=== PATIENT | male | born 1950 | race Caucasian/White ===

== ENCOUNTER 2019-06-16 07:31 | Day surgery (SDC) | payer MEDICARE, OTHER ==
[2019-06-16] VITALS (17 sets, daily range): BP systolic 118–160; BP diastolic 59–85
[~2019-06-16] VITALS: Ht 193 cm; Wt 144.7 kg
[2019-06-16] MEDS ORDERED: normal saline 1000ml 1,000 ML IV SCH ×2 (07:55→09:06)
[2019-06-16] MEDS ORDERED: ENZA40CA PO (08:40)
[2019-06-16] MEDS ORDERED: SYN0.112T PO (08:40)
[2019-06-16] MEDS ORDERED: PARO10TA85 PO (08:40)
[2019-06-16] MEDS ORDERED: HYDR12.5 PO (08:40)
[2019-06-16] MEDS ORDERED: DENO120V (08:40)
[2019-06-16] MEDS ORDERED: CALC-1051 PO (08:40)
[2019-06-16] MEDS ORDERED: MULT-1141 PO (08:40)
[2019-06-16] MEDS ORDERED: HYDR-3973 PO (08:40)
[2019-06-16] MEDS ORDERED: MELO-102 PO (08:40)
[2019-06-16] MEDS ORDERED: OXYC10TA47 PO (08:40)
[2019-06-16] MEDS ORDERED: ENAL20TA PO (08:40)
[2019-06-16] MEDS ORDERED: FAMO20TA8 PO (08:40)
[2019-06-16 09:10] LABS: BASOPHILS % (AUTO) 0.7 % (0-1); EOSINOPHILS # (AUTO) 0.1 X10'3 (0-0.9); EOSINOPHILS % (AUTO) 3.1 % (0-6); HEMATOCRIT 36.7 % (42.0-52.0); HEMOGLOBIN 13.1 g/dl (14.0-17.9); LYMPHOCYTES # (AUTO) 0.5 X10'3 (1.1-4.8); LYMPHOCYTES % (AUTO) 11.9 % (21-51); MEAN CORPUSCULAR HEMOGLOBIN 33.9 PG (27.0-31.0); MEAN CORPUSCULAR HGB CONC 35.7 g/dL (33.0-36.5); MEAN PLATELET VOLUME 6.8 FL (7.4-10.4); MONOCYTES # (AUTO) 0.3 X10'3 (0-0.9); MONOCYTES % (AUTO) 8.1 % (2-12); NEUTROPHILS # (AUTO) 3.1 X10'3 (1.8-7.7); NEUTROPHILS % (AUTO) 76.2 % (42-75); PLATELET COUNT 155 X10'3 (140-440); RED BLOOD COUNT 3.86 X10'6 (4.70-6.10); RED CELL DISTRIBUTION WIDTH 14.2 % (11.5-14.5)
[2019-06-16 09:25] LABS: ALBUMIN 3.5 G/DL (3.4-5.0); ANION GAP 6 (8-16); BLOOD UREA NITROGEN 16 MG/DL (7-18); BUN/CREATININE RATIO 15.4 (5.4-32.0); CALCIUM 8.2 MG/DL (8.5-10.1); CHLORIDE 106 MMOL/L (99-107); CREATININE 1.04 MG/DL (0.60-1.10); GLUCOSE 99 MG/DL (70-104); POTASSIUM 4.1 MMOL/L (3.5-5.1); SODIUM 142 MMOL/L (135-145); TOTAL CARBON DIOXIDE 29.9 MMOL/L (24-32); eGFR 71 ML/MIN
[2019-06-16] MEDS ORDERED: fentaNYL/PF 50MCG/1 ML 2ML syringe IV PRN (09:25)
[2019-06-16] MEDS ORDERED: LIDOcaine 1% (10mg/ml) 2ml vial SQ ONE (09:25)
[2019-06-16] MEDS ORDERED: midazolam 2 mg/2 ml injection ONE ×2 (09:25→10:54)
[2019-06-16] MEDS ORDERED: midazolam 2 mg/2 ml injection IV PRN (09:25)
[2019-06-16] MEDS ORDERED: fentaNYL/PF 50MCG/1 ML 2ML syringe ONE ×2 (09:26→10:54)
[2019-06-16] MEDS ORDERED: iohexol 300mg/ml 100ml inj. ONE (10:02)
[2019-06-16] MEDS ORDERED: LIDOcaine 1%/PF 5ML 10 MG/ML VIAL ONE (10:54)
[2019-06-16] MEDS ORDERED: heparin sodium, porcine/PF 100unit/ml 5ML syringe ONE (10:54)
== END 2019-06-16 13:30 | disposition home or self-care (01) ==
LOC: SSTAY O 07:31
PROVIDERS: ATTEND Radiology Diagnostic Radiology
DX: C61 Malignant neoplasm of prostate (principal); K76.9 Liver disease, unspecified; K21.9 Gastro-esophageal reflux disease without esophagitis; I10 Essential (primary) hypertension; E03.9 Hypothyroidism, unspecified; E66.9 Obesity, unspecified; Z68.38 Body mass index [BMI] 38.0-38.9, adult; Z96.653 Presence of artificial knee joint, bilateral; Z98.890 Other specified postprocedural states; Z98.41 Cataract extraction status, right eye; Z98.42 Cataract extraction status, left eye; Z98.1 Arthrodesis status; Z79.899 Other long term (current) drug therapy
CPT/HCPCS: 36415; 36561; 74160; 76937; 77001; 80048; 85025; 85610; 99152; 99153; A6213; C1769; C1788; C1894; J1642; J2250; J3010; J7030; Q9967